=== PATIENT | male | born 1950 | race Caucasian/White ===

== ENCOUNTER 2019-01-10 08:22 | Emergency (ER) | payer OTHER ==
[2019-01-10 08:29] VITALS: BMI 40.3
[2019-01-10 08:30] VITALS: O2SAT 97
--- NOTE | 2019-01-10 09:08 | C.PDOC ---
History Of Present Illness 68 y/o obese male with no known med hx (doesn't see doctor in 2 yrs) c/o left lower back pain x 3 days. non radiating and constant. pt also c/o urinary frequency and urgency. no fever, chills, n,v,d. no abdominal pain. Time Seen by Provider: 01/10/19 08:55 Chief Complaint (Nursing): Male Genitourinary History Per: Patient History/Exam Limitations: no limitations Onset/Duration Of Symptoms: Days Current Symptoms Are (Timing): Still Present Associated Symptoms: Urinary Symptoms Past Medical History Reviewed: Historical Data, Nursing Documentation, Vital Signs Vital Signs: Last Vital Signs Temp 98.3 F 01/10/19 08:28 Pulse 82 01/10/19 08:28 Resp 18 01/10/19 08:28 BP 168/98 H 01/10/19 08:28 Pulse Ox 97 01/10/19 08:28 Family History: States: No Known Family Hx - Social History Hx Tobacco Use: Yes Hx Alcohol Use: Yes Hx Substance Use: No - Immunization History Hx Tetanus Toxoid Vaccination: No Hx Influenza Vaccination: No Hx Pneumococcal Vaccination: No Review Of Systems Constitutional: Negative for: Fever, Chills Cardiovascular: Negative for: Chest Pain Respiratory: Negative for: Cough Gastrointestinal: Negative for: Nausea, Vomiting, Abdominal Pain, Diarrhea Genitourinary: Positive for: Frequency (and urgency) Musculoskeletal: Positive for: Back Pain (left lower) Skin: Negative for: Rash Neurological: Negative for: Weakness, Numbness Physical Exam - Physical Exam Appears: Non-toxic, No Acute Distress, Other (Morbidly obese male, Appears uncomfortable) Skin: Warm, No Rash Head: Atraumatic, Normacephalic Eye(s): bilateral: PERRL, EOMI Neck: Normal ROM Chest: Symmetrical Cardiovascular: Rhythm Regular, No Murmur Respiratory: No Rales, No Rhonchi, No Wheezing, Other (Lungs CTA bilaterally) Gastrointestinal/Abdominal: Soft, No Tenderness, No Mass (no pulsatile mass), Other (Surgical scar near umbilicus from prior surgery) Back: CVA Tenderness (Mild left CVAT), No Vertebral Tenderness, Paraspinal Tend erness (Left paralumbar) Extremity: Normal ROM, No Calf Tenderness, No Swelling Pulses: Left Dorsalis Pedis: Normal, Right Dorsalis Pedis: Normal Neurological/Psych: Oriented x3, Normal Cognition, Normal Motor, Normal Sensati on ED Course And Treatment - Laboratory Results Result Diagrams: 01/10/19 09:56 01/10/19 09:56 O2 Sat by Pulse Oximetry: 97 (RA) Pulse Ox Interpretation: Normal - CT Scan/US CT A/P Other Rad Studies (CT/US): Read By Radiologist, Radiology Report Reviewed CT/US Interpretation: IMPRESSION: 1. No nephrolithiasis, hydronephrosis or obstructive uropathy. 2. Cholelithiasis. 3. Moderate sized right inguinal scrotal hernia containing fluid and herniation of right lateral urinary bladder within the hernia sac. Medical Decision Making Medical Decision Making: Initial Plan: Patient given 975mg PO Tylenol, 30mg IV Toradol. Ordered blood work, UA, and CT Abdomen/Pelvis without contrast. CT resulted - Moderate sized right inguinal scrotal hernia containing fluid and herniation of right lateral urinary bladder; discussed with Dr Francis, no emergent treatment needed., will refer to gu and surgery UA shows +1 leuks, WBC, rare bacteria, will tx for uti Results discussed w/ pt. Disposition Counseled Patient/Family Regarding: Studies Performed, Diagnosis, Need For Followup, Rx Given - Disposition Referrals: [facility] [Outside] [facility] [Outside] Disposition: HOME/ ROUTINE Disposition Time: 12:13 Condition: GOOD Additional Instructions: Take antibiotics until completed, drink increased fluids. Tylenol or Motrin for pain. Follow up with medical clinic- need blood pressure checked; it is elevated in ER; need full general check up and also need follow up with surgery for hernia and urology for prostate check. Return to ER for any worse symptms. Prescriptions: Nitrofurantoin Macrocrystals [Macrobid] 100 mg PO BID #14 cap Instructions: Urinary Tract Infection, Adult (DC), High Blood Pressure (DC) Forms: [facility] ([place]), General Discharge Instructions - Clinical Impression Clinical Impression: UTI (urinary tract infection), Elevated blood pressure reading - PA / COMPUTER METEOROLOGIST / Resident Statement MD/DO has reviewed & agrees with the documentation as recorded. - Scribe Statement The provider has reviewed the documentation as recorded by the Scribe
[2019-01-10 09:53] LABS: SQUAMOUS EPITHIAL 15 /hpf (0-5); URINE BACTERIA RARE (<OCC); URINE BILIRUBIN NEGATIVE (NEGATIVE); URINE BLOOD NEGATIVE (NEGATIVE); URINE CLARITY Clear (Clear); URINE COLOR Yellow (YELLOW); URINE GLUCOSE (UA) NORMAL (Normal); URINE LEUKOCYTE ESTERASE 1+ Leu/uL (Negative); URINE PROTEIN NEGATIVE (NEGATIVE); URINE UROBILINOGEN NORMAL mg/dL (0.2-1.0)
[2019-01-10 10:01] LABS: BASO % 0.7 % (0.0-2.0); EOS # 0.2 K/uL (0.0-0.7); EOS % 2.6 % (0.0-4.0); HEMOGLOBIN 14.7 g/dL (12.0-18.0); LYMPH # 1.5 K/uL (1.0-4.3); LYMPH % 26.9 % (20.0-40.0); MEAN CORPUSCULAR HEMOGLOBIN 31.1 pg (27.0-31.0); MEAN CORPUSCULAR HGB CONC 33.5 g/dL (33.0-37.0); MEAN PLATELET VOLUME 8.9 fL (7.2-11.7); MONO # 0.7 K/uL (0.0-0.8); MONO % 11.7 % (0.0-10.0); NEUT # 3.3 K/uL (1.8-7.0); NEUT % 58.1 % (50.0-75.0); NRBC % 0.1 % (0.0-2.0); RBC 4.72 Mil/uL (4.40-5.90); RED CELL DISTRIBUTION WIDTH 14.4 % (11.5-14.5); WHITE BLOOD COUNT 5.7 K/uL (4.8-10.8)
[2019-01-10 10:06] LABS: MEAN CELL VOLUME 92.9 fL (80.0-94.0)
[2019-01-10 10:14] LABS: ALBUMIN 3.9 g/dL (3.5-5.0); ALT/SGPT 41 U/L (21-72); AST/SGOT 66 U/L (17-59); BLOOD UREA NITROGEN 14 mg/dL (9-20); CALCIUM 9.1 mg/dl (8.6-10.4); GFR NON-AFRICAN AMERICAN > 60; LIPASE 209 U/L (23-300)
--- NOTE | 2019-01-10 10:25 | CT ---
Date of service: 01/10/2019 PROCEDURE: CT Abdomen and Pelvis without intravenous contrast HISTORY: Left flank pain COMPARISON: None. TECHNIQUE: CT scan of the abdomen and pelvis was performed without administration of intravenous contrast. Oral contrast was not administered. Coronal and sagittal reformatted images were obtained. Radiation dose: Total exam DLP = 1389.3 mGy-cm. This CT exam was performed using one or more of the following dose reduction techniques: Automated exposure control, adjustment of the mA and/or kV according to patient size, and/or use of iterative reconstruction technique. FINDINGS: LOWER THORAX: Linear atelectasis in the lung bases. LIVER: Normal in size. No gross lesion or ductal dilatation. GALLBLADDER AND BILE DUCTS: Well distended. There are calcified gallstones. No common bile duct dilatation. PANCREAS: Normal in size. No gross lesion or ductal dilatation. SPLEEN: Normal in size. ADRENALS: Normal in size. No discrete nodule. KIDNEYS AND URETERS: Both kidneys are normal in size. There is a 1.5 cm simple cyst in the upper pole. No hydronephrosis or nephrolithiasis. VASCULATURE: Normal in caliber. No aortic aneurysm. No aortic atherosclerotic calcification or mural plaque present. BOWEL: Evaluation of the bowel is limited in the absence of oral contrast. The small bowel loops are normal in caliber. The colon is normal in size. No bowel dilatation or wall thickening. No bowel obstruction. APPENDIX: Normal appendix. PERITONEUM: No free fluid. No free air. LYMPH NODES: No enlarged lymph nodes. BLADDER: Partially distended and normal in appearance. REPRODUCTIVE: The prostate gland is normal in size. BONES: No acute fracture. Within normal limits for the patient's age. OTHER FINDINGS: There is a moderate size right inguinal scrotal hernia containing fluid. There is also herniation of the right lateral urinary bladder in the hernia sac. There is a small left fat containing inguinal hernia. IMPRESSION: 1. No nephrolithiasis, hydronephrosis or obstructive uropathy. 2. Cholelithiasis. 3. Moderate sized right inguinal scrotal hernia containing fluid and herniation of right lateral urinary bladder within the hernia sac.
[2019-01-10 12:07] VITALS: BP 172/98; PULSE 75; RESP 20; TEMP 97.6
== END 2019-01-10 12:34 | disposition home or self-care (01) ==
LOC: C.ER 08:22
DX: R03.0 Elevated blood-pressure reading, without diagnosis of hypertension (principal); N39.0 Urinary tract infection, site not specified; Z72.0 Tobacco use
CPT/HCPCS: 74176; 80053; 81001; 83690; 85025; 87086; 96374; 99285; J1885